=== PATIENT | male | born 1975 | race Two or more races ===

== ENCOUNTER 2020-01-08 18:22 | Emergency (ER) | payer OTHER ==
[~2020-01-08] VITALS: Ht 182.9 cm; Wt 90.6 kg
[2020-01-08] MEDS ORDERED: ACETAMINOPHEN 500 MG TABLET ONE ×2 (18:37→18:47)
--- NOTE | 2020-01-08 18:38 | NUR ---
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
[2020-01-08 18:59] LABS: BASOPHILS # (AUTO) 0.01 x10^3/uL (0-0.1); BASOPHILS % (AUTO) 0 % (0-1); EOSINOPHILS % (AUTO) 0 % (1-7); LYMPHOCYTES # (AUTO) 1.13 x10^3/uL (1-3.4); LYMPHOCYTES % (AUTO) 23 % (22-44); MD NO; MEAN CORPUSCULAR HEMOGLOBIN 32.1 pg (27.5-34.5); MEAN CORPUSCULAR HGB CONC 34.7 g/dL (33.2-36.2); MEAN CORPUSCULAR VOLUME 92.7 fL (81-97); MEAN PLATELET VOLUME 9.3 fL (7.4-10.4); MONOCYTES # (AUTO) 0.21 x10^3/uL (0.2-0.8); MONOCYTES % (AUTO) 4 % (2-9); NEUTROPHILS # (AUTO) 3.47 x10^3/uL (1.8-6.8); NEUTROPHILS % (AUTO) 72 % (42-75); PLATELET COUNT 190 x10^3/uL (130-400); RED BLOOD COUNT 4.72 x10^6/uL (4.38-5.82); RED CELL DISTRIBUTION WIDTH 13.5 % (9.4-14.8)
[2020-01-08] MEDS ORDERED: SODIUM CHLORIDE FLUSH 10ML SYR IVF ONE (19:00)
[2020-01-08] MEDS ORDERED: ACETAMINOPHEN 500 MG TABLET PO ONE (19:00)
[2020-01-08] MEDS ORDERED: ACETAMINOPHEN 325 MG TABLET PO ONE (19:00)
--- NOTE | 2020-01-08 19:05 | NUR ---
ASSUME CARE OF PT AT THIS TIME. PT RECLINED IN BED, RESPIRATIONS EVEN AND UNLABORED SATURATING WELL ON RA. PT PLACED ON MONITOR. BANKER MASON COMPLETED. NAD NOTED AT THIS TIME. PLAN FOR IV START. LABS DRAWN. PER PT, TYLENOL HAS BEEN ADMINISTERED ALREADY. LIGHTS DIMMED FOR PT COMFORT.
[2020-01-08 19:06] LABS: ALANINE AMINOTRANSFERASE 83 U/L (12-78); ALBUMIN 3.9 g/dL (3.4-5.0); ANION GAP 8 mmol/L (5-15); CALCIUM 8.9 mg/dL (8.5-10.1); CHLORIDE 106 mmol/L (98-107)
[2020-01-08 19:10] LABS: ALKALINE PHOSPHATASE 114 U/L (45-117); BILIRUBIN,TOTAL 0.6 mg/dL (0.2-1.0); TOTAL PROTEIN 8.3 g/dL (6.4-8.2); TROPONIN I < 0.015 ng/mL (0.000-0.045)
--- NOTE | 2020-01-08 19:55 | NUR ---
PT RECLINED IN BED, RESPIRATIONS EVEN AND UNLABORED ON RA. NAD NOTED AT THIS TIME. ERMD AWARE OF INCREASING PAIN. AWAITING FURTHER ORDERS.
[2020-01-08] MEDS ORDERED: KETOROLAC 30 MG/1 ML ONE (20:11)
[2020-01-08] MEDS ORDERED: KETOROLAC 30 MG/1 ML IVPush ONE (20:30)
[2020-01-08 21:08] VITALS: BP 118/64
== END 2020-01-08 21:11 | disposition home or self-care (01) ==
LOC: ED 20:45
DX: U07.1 COVID-19 (principal); R50.9 Fever, unspecified; R05 Cough; R07.89 Other chest pain; R06.02 Shortness of breath; I44.5 Left posterior fascicular block
CPT/HCPCS: 36415; 71045; 80053; 84484; 85025; 85379; 87635; 93005; 96374; 99285; J1885